=== PATIENT | male | born 1950 | race Caucasian/White ===

== ENCOUNTER 2017-03-20 12:28 | Inpatient (IN) | payer MEDICAID ==
[~2017-03-20] VITALS: Ht 172.7 cm; Wt 72.0 kg
[2017-03-20] MEDS ORDERED: ONDANSETRON 2MG/ML, 2ML IVPush ONE (13:30)
[2017-03-20] MEDS ORDERED: MORPHINE SULFATE 4 MG/ML, 1ML IVPush PRN ×2 (13:30→16:30)
[2017-03-20] MEDS ORDERED: ASPIRIN 81 MG TABLET CHEW PO ONE (13:30)
[2017-03-20] MEDS ORDERED: SODIUM CHLORIDE FLUSH 10ML SYR IVF ONE (13:30)
[2017-03-20] MEDS ORDERED: PLEASE ENTER ALLERGIES MC SCH ×2 (13:30)
[2017-03-20 13:35] LABS: HEMATOCRIT 40.7 % (39.2-51.8); HEMOGLOBIN 13.9 g/dL (13.7-18.0); WHITE BLOOD COUNT 8.3 x10^3/uL (3.4-10)
[2017-03-20 13:43] LABS: BLOOD UREA NITROGEN 16 mg/dL (7-18)
[2017-03-20 13:47] LABS: IS PT STATUS REG ER OR PRE ER? YES
[2017-03-20] MEDS ORDERED: NITROGLYCERIN OINT 2%, 1GM TP ONE (14:30)
[2017-03-20] MEDS ORDERED: ONDANSETRON 2MG/ML, 2ML IVPush PRN (16:30)
[2017-03-20 17:15] LABS: IS PT STATUS REG ER OR PRE ER? NO
[2017-03-20 17:25] VITALS: BP 144/73
[2017-03-20] MEDS ORDERED: LISI10TA2 PO (19:42)
[2017-03-20] MEDS ORDERED: AMLO10TA2 PO (19:42)
[2017-03-20] MEDS ORDERED: TIMO5DRO28 EACHEYE (19:45)
[2017-03-20] MEDS ORDERED: BRIN10DR EACHEYE (19:46)
[2017-03-20] MEDS ORDERED: LATA2.5D3 EACHEYE (19:47)
[2017-03-20 19:52] VITALS: BP 165/68
[2017-03-20] MEDS: LISINOPRIL 20 MG TABLET PO SCH (21:00)
[2017-03-20] MEDS ORDERED: LATANOPROST OPHTH 0.005%, 2.5ML EACHEYE SCH (21:00)
[2017-03-20 22:59] LABS: IS PT STATUS REG ER OR PRE ER? NO
[2017-03-21 01:48] VITALS: BP 149/62
[2017-03-21 07:23] VITALS: BP 136/71
[2017-03-21] MEDS ORDERED: REGADENOSON 0.4 MG/5 ML SYRINGE ONE (08:08)
[2017-03-21] MEDS: LISINOPRIL 20 MG TABLET PO SCH (08:33)
[2017-03-21] MEDS ORDERED: LISINOPRIL 10 MG TABLET PO ONE (09:00)
[2017-03-21] MEDS ORDERED: AMLODIPINE 5 MG TABLET PO ONE (09:00)
[2017-03-21] MEDS ORDERED: AMLODIPINE 5 MG TABLET PO SCH (11:30)
[2017-03-21 14:58] VITALS: BP 133/66
== END 2017-03-21 16:17 | disposition home or self-care (01) | DRG 313 ==
LOC: ED 15:36 → SUATTDRO 16:25 → EDIP 16:26 → 5SO 16:59
PROVIDERS: ADMIT Hospitalist; ATTEND Hospitalist
DX: R07.89 Other chest pain (principal); I10 Essential (primary) hypertension; H40.9 Unspecified glaucoma; F17.210 Nicotine dependence, cigarettes, uncomplicated; Z82.49 Family history of ischemic heart disease and other diseases of the circulatory system; Z79.899 Other long term (current) drug therapy
CPT/HCPCS: 36415; 71010; 78452; 80048; 80061; 82040; 84484; 85025; 93005; 93017; 99285; J2785; A9502; C9898

== ENCOUNTER 2018-11-18 09:03 | Emergency (ER) | payer MEDICARE, MEDICAID ==
[~2018-11-18] VITALS: Ht 172.7 cm; Wt 74.0 kg
[~2018-11-18 09:03] MED LIST: AMLO10TA8 PO; BRIN10DR EACHEYE; LATA2.5D3 EACHEYE; LISI10TA2 PO; TIMO5DRO28 EACHEYE
--- NOTE | 2018-11-18 09:12 | NUR ---
PATIENT BIB [facility] FOR LT FLANK RADIATING DOWN LT LEG X 2 DAYS, FENTANYL AND ZOFRAN GIVEN EN ROUTE. HX HTN, HYPERLIPIDEMIA, GLAUCOMA. PATIENT REPORTS NOT TAKING HTN MEDICATION THIS AM. NADN. AWAITING MD ORDERS, CALL LIGHT WITHIN REACH, WARM BLANKET PROVIDED.
[2018-11-18] MEDS ORDERED: ATOR10TA9 PO (09:17)
[2018-11-18] MEDS ORDERED: KETOROLAC 30 MG/1 ML ONE (09:23)
[2018-11-18] MEDS ORDERED: HYDROmorphone 2 MG/ML, 1ML ONE (09:23)
[2018-11-18] MEDS ORDERED: HYDROmorphone 2 MG/ML, 1ML IVPush PRN (09:30)
[2018-11-18] MEDS ORDERED: SODIUM CHLORIDE FLUSH 10ML SYR IVF ONE (09:30)
[2018-11-18] MEDS ORDERED: KETOROLAC 30 MG/1 ML IVPush ONE (09:30)
--- NOTE | 2018-11-18 09:30 | NUR ---
UA COLLECTED AND GIVEN TO DIRECTOR OF SPORTS PERFORMANCE.
[2018-11-18 09:37] LABS: BASOPHILS # (AUTO) 0.01 x10^3/uL (0-0.1); BASOPHILS % (AUTO) 0 % (0-1); EOSINOPHILS % (AUTO) 3 % (1-7); LYMPHOCYTES # (AUTO) 1.47 x10^3/uL (1-3.4); LYMPHOCYTES % (AUTO) 18 % (22-44); MD NO; MEAN CORPUSCULAR HEMOGLOBIN 29.7 pg (27.5-34.5); MEAN CORPUSCULAR HGB CONC 32.9 g/dL (33.2-36.2); MEAN CORPUSCULAR VOLUME 90.4 fL (81-97); MEAN PLATELET VOLUME 8.5 fL (7.4-10.4); MONOCYTES % (AUTO) 5 % (2-9); NEUTROPHILS % (AUTO) 74 % (42-75); PLATELET COUNT 289 x10^3/uL (130-400); RED BLOOD COUNT 5.18 x10^6/uL (4.38-5.82); RED CELL DISTRIBUTION WIDTH 13.9 % (9.4-14.8)
--- NOTE | 2018-11-18 09:43 | NUR ---
PATIENT IN CT.
[2018-11-18 09:46] LABS: MICROSCOPIC AUTO
[2018-11-18 09:49] LABS: ANION GAP 7 mmol/L (5-15); CALCIUM 8.7 mg/dL (8.5-10.1); CHLORIDE 111 mmol/L (98-107); CREATININE 1.01 mg/dL (0.7-1.3)
[2018-11-18 09:52] LABS: CULTURE INDICATED? YES
[2018-11-18 10:04] VITALS: BP 171/56
--- NOTE | 2018-11-18 10:13 | NUR ---
UROLOGY CONSULTED, PATIENT SPEAKING WITH MD AT BEDSIDE.
--- NOTE | 2018-11-18 10:31 | NUR ---
PRECEPTOR RN: BEDSIDE REPORT W/ RN WINTER RECEIVED FROM JENNA KIM, PT CARE ASSUMED AT THIS TIME. PT IN BED, NAD, AWAITING UROLOGY CONSULT, NO NEEDS AT THIS TIME. WCSALIMA.
== END 2018-11-18 11:17 | disposition home or self-care (01) ==
LOC: ED 11:15
DX: M54.42 Lumbago with sciatica, left side (principal); N13.2 Hydronephrosis with renal and ureteral calculous obstruction; I10 Essential (primary) hypertension; F17.200 Nicotine dependence, unspecified, uncomplicated; Z90.49 Acquired absence of other specified parts of digestive tract
CPT/HCPCS: 36415; 74176; 80048; 81001; 82040; 85025; 87086; 96374; 96375; 99284; J1170; J1885

== ENCOUNTER 2020-09-28 22:08 | Emergency (ER) | payer MEDICARE ==
[~2020-09-28] VITALS: Ht 172.7 cm; Wt 84.7 kg
[~2020-09-28 22:08] MED LIST changes: +AMLO-211 PO; -AMLO10TA8 PO; +ATOR10TA9 PO; -LATA2.5D3 EACHEYE; +LATA2.5D4 EACHEYE; +LISI10TA19 PO; -LISI10TA2 PO
[2020-09-28 22:15] VITALS: BP 157/68
== END 2020-09-28 23:14 | disposition home or self-care (01) ==
LOC: ED 22:38
DX: K04.7 Periapical abscess without sinus (principal); K02.9 Dental caries, unspecified; I10 Essential (primary) hypertension; Z90.49 Acquired absence of other specified parts of digestive tract
CPT/HCPCS: 99283